=== PATIENT | female | born 1985 | race Caucasian/White ===

== ENCOUNTER 2017-07-13 07:30 | Inpatient (IN) | payer OTHER ==
[~2017-07-13] VITALS: Ht 172.7 cm; Wt 72.5 kg
[2017-08-12] MEDS ORDERED: ASPI1TAB57 PO (05:40)
[2017-08-12] MEDS ORDERED: ZYRTEC PO (05:40)
[2017-08-12] MEDS ORDERED: PRENTAB7 (05:40)
[2017-08-12] MEDS ORDERED: LACTATED RINGER'S 1000 ML IV ONE (06:00)
[2017-08-12] MEDS ORDERED: ceFAZolin 2 GM PREMIX 50 ML IV SCH (06:00)
[2017-08-12] MEDS ORDERED: LACTATED RINGER'S 1000 ML IV SCH (06:00)
[2017-08-12] MEDS ORDERED: CITRIC ACID-SODIUM CITRATE LIQ 30 ML UDC PO SCH (06:00)
[2017-08-12 06:13] LABS: AUTOMATED NEUTROPHIL # 3.4 TH/MM3 (1.8-7.7); BASOPHIL % 0.5 % (0.0-2.0); EOSINOPHIL % 0.8 % (0.0-4.0); HEMATOCRIT 32.9 % (35.0-46.0); HEMOGLOBIN 11.1 GM/DL (11.6-15.3); LYMPH % 19.9 % (9.0-44.0); MEAN CELL VOLUME 81.2 FL (80.0-100.0); MEAN CORPUSCULAR HEMOGLOBIN 27.4 PG (27.0-34.0); MEAN CORPUSCULAR HGB CONC 33.7 % (32.0-36.0); MEAN PLATELET VOLUME 8.7 FL (7.0-11.0); MONO % 8.8 % (0.0-8.0); MONOCYTE # 0.4 TH/MM3 (0-0.9); PLATELET COUNT 197 TH/MM3 (150-450); RED BLOOD COUNT 4.05 MIL/MM3 (4.00-5.30); RED CELL DISTRIBUTION WIDTH 13.4 % (11.6-17.2); WHITE BLOOD COUNT 4.9 TH/MM3 (4.0-11.0)
[2017-08-12 06:19] LABS: BACTERIA, URINE RARE /hpf; BILIRUBIN, URINE NEG (NEG); BLOOD, URINE NEG (NEG); GLUCOSE,URINE NEG (NEG); KETONE, URINE 10 mg/dL (NEG); NITRITE,URINE NEG (NEG); SQUAMOUS EPITHELIAL CELL URINE 11 /hpf (0-5); URINE COLOR YELLOW (YELLW/STRAW); URINE LEUKOCYTE ESTERASE SMALL (NEG)
[2017-08-12 07:08] LABS: ALBUMIN 3.2 GM/DL (3.4-5.0); AST (GOT) 20 U/L (15-37); BICARBONATE 20.3 MEQ/L (21.0-32.0); BLOOD UREA NITROGEN 14 MG/DL (7-18); CHLORIDE 105 MEQ/L (98-107); CREATININE 0.57 MG/DL (0.50-1.00); GLOMERULAR FILTRATION RATE 121 ML/MIN (>89); GLUCOSE,RANDOM 75 MG/DL (74-106); SODIUM (NA) 137 MEQ/L (136-145)
[2017-08-12 07:09] LABS: ALT (GPT) 21 U/L (10-53)
[2017-08-12 07:12] LABS: ALKALINE PHOSPHATASE 300 U/L (45-117); TOTAL BILIRUBIN ADULT 0.2 MG/DL (0.2-1.0); TOTAL PROTEIN 7.1 GM/DL (6.4-8.2)
[2017-08-12] MEDS ORDERED: MORPHINE SULFATE PF 5 MG/10 ML VIAL ONE (07:15)
--- NOTE | 2017-08-12 07:29 | HHI.HP ---
HPI Chief Complaint repeat CS at 39 weeks Date Seen: August 12, 2017 Time Seen: 07:00 Travel History International Travel<30 Days: No Contact w/Intl Traveler<30Days: No Known Affected Area: No History of Present Illness HPI 32 yo G$ P3 with 3 previous CS for repeat at 39 weeks Weeks Gestation: 39 Para: 3 : 4 History Past Medical History Medical History: Denies Significant Hx Past Surgical History Surgical History: No Previous Surgery Family History Family History: Negative Social History Alcohol Use: No Tobacco Use: No Substance Abuse: No Allergies-Medications (Allergen,Severity, Reaction): Coded Allergies: No Known Allergies (Unverified , 08/12/17) Home Meds Reported Medications Aspirin DR (Aspirin 81) 81 Mg Tabdr, 81 MG PO DAILY, TAB 0 Refills 08/12/17 [Zyrtec] No Conflict Check, 10 MG PO DAILY 08/12/17 Pnv No.95/Ferrous Fum/Folic AC ( Vitamins Tablet) 28 Mg Iron-800 Mcg Tablet 08/12/17 Review of Systems Except as stated in HPI: all other systems reviewed are Neg Physical Exam Narrative GENERAL: Well-nourished, well-developed patient. SKIN: Warm and dry. HEAD: Normocephalic and atraumatic. EYES: No scleral icterus. No injection or drainage. ENT: No nasal drainage noted. Mucous membranes pink. Airway patent. NECK: Supple, trachea midline. No JVD. CARDIOVASCULAR: Regular rate and rhythm without murmurs, gallops, or rubs. RESPIRATORY: Breath sounds equal bilaterally. No accessory muscle use. BREASTS: Bilateral exam showed no masses , no retractions, no nipple discharge. ABDOMEN/GI: Abdomen soft, non-tender, bowel sounds present, no rebound, no guarding Gravid to 40 weeks size Fundal Height: [-] GENITOURINARY: External Genitalia: intact and normal in appearance BUS glands: [-] Cervix: [-] Dilatation: deferred Effacement: [-] Station: [-] Presentation: VTX Membranes: [intact FHT's: Category:1 Baseline: [-] Reactive: [-] Variability: [-] Decels: [-] EXTREMITIES: No cyanosis or edema. BACK: Nontender without obvious deformity. No CVA tenderness. NEUROLOGICAL: Awake and alert. Motor and sensory grossly within normal limits. Five out of 5 muscle strength in all muscle groups. Normal speech. Caprini VTE Risk Assessment Caprini VTE Risk Assessment: No/Low Risk (score <= 1) Caprini Risk Assessment Model Point Value = 1 Point Value = 2 Point Value = 3 Point Value = 5 Age 41-60 Minor surgery BMI > 25 kg/m2 Swollen legs Varicose veins or History of unexplained or recurrent spontaneous Oral contraceptives or hormone replacement Sepsis (< 1 month) Serious lung disease, including pneumonia (< 1 month) Abnormal pulmonary function Acute myocardial infarction Congestive heart failure (< 1 month) History of inflammatory bowel disease Medical patient at bed rest Age 61-74 Arthroscopic surgery Major open surgery (> 45 min) Laparoscopic surgery (> 45 min) Malignancy Confined to bed (> 72 hours) Immobilizing plaster cast Central venous access Age >= 75 History of VTE Family history of VTE Factor V Leiden Prothrombin [id number] Lupus anticoagulant Anticardiolipin antibodies Elevated serum homocysteine Heparin-induced thrombocytopenia Other congenital or acquired thrombophilia Stroke (< 1 month) Elective arthroplasty Hip, pelvis, or leg fracture Acute spinal cord injury (< 1 month) Prophylaxis Regimen Total Risk Factor Score Risk Level Prophylaxis Regimen 0-1 Low Early ambulation 2 Moderate Order ONE of the following: *Sequential Compression Device (SCD) *Heparin 5000 units SQ BID 3-4 Higher Order ONE of the following medications: *Heparin 5000 units SQ TID *Enoxaparin/Lovenox 40 mg SQ daily (WT < 150 kg, CrCl > 30 mL/min) *Enoxaparin/Lovenox 30 mg SQ daily (WT < 150 kg, CrCl > 10-29 mL/min) *Enoxaparin/Lovenox 30 mg SQ BID (WT < 150 kg, CrCl > 30 mL/min) AND/OR *Sequential Compression Device (SCD) 5 or more Highest Order ONE of the following medications: *Heparin 5000 units SQ TID (Preferred with Epidurals) *Enoxaparin/Lovenox 40 mg SQ daily (WT < 150 kg, CrCl > 30 mL/min) *Enoxaparin/Lovenox 30 mg SQ daily (WT < 150 kg, CrCl > 10-29 mL/min) *Enoxaparin/Lovenox 30 mg SQ BID (WT < 150 kg, CrCl > 30 mL/min) AND *Sequential Compression Device (SCD) Data Data Vital Signs Reviewed: Yes Orders Orders Admit To Inpatient (08/12/17 ) Code Status (08/12/17 05:40) Vital Signs (Adult) .ON ADMISSION (08/12/17 05:40) Activity Oob Ad Jeanette (08/12/17 05:40) Heart (08/12/17 05:40) Urinary Catheter Management FAREED.Q8H (08/12/17 05:40) ^ Preps (08/12/17 05:40) Scd / Jerome / Foot Pump FAREED.QSHIFT (08/12/17 05:40) ^ Ultrasound For Locatio (08/12/17 05:40) Diet Npo (08/12/17 Breakfast) Type And Screen (08/12/17 05:40) Complete Blood Count With Diff (08/12/17 05:40) Urinalysis - C+S If Indicated (08/12/17 05:40) Drug Screen, Random Urine (08/12/17 05:40) Specimen To Be Collected PRN (08/12/17 05:40) Specimen To Be Collected PRN (08/12/17 05:40) Lactated Ringer's 1000 Ml Inj (Lr 1000 M (08/12/17 06:00) Lactated Ringer's 1000 Ml Inj (Lr 1000 M (08/12/17 06:00) Citric Acid-Sodium Citrate Liq (Bicitra (08/12/17 06:00) Cefazolin 2 Gm Premix (Ancef 2 Gm Premix (08/12/17 06:00) Comprehensive Metabolic Panel (08/12/17 06:01) Morphine Pf Inj (Duramorph Pf 0.5 Mg/Ml (08/12/17 07:15) Labs Laboratory Tests Test 08/12/17 05:55 White Blood Count 4.9 Red Blood Count 4.05 Hemoglobin 11.1 Hematocrit 32.9 Mean Corpuscular Volume 81.2 Mean Corpuscular Hemoglobin 27.4 Mean Corpuscular Hemoglobin Concent 33.7 Red Cell Distribution Width 13.4 Platelet Count 197 Mean Platelet Volume 8.7 Neutrophils (%) (Auto) 70.0 Lymphocytes (%) (Auto) 19.9 Monocytes (%) (Auto) 8.8 Eosinophils (%) (Auto) 0.8 Basophils (%) (Auto) 0.5 Neutrophils # (Auto) 3.4 Lymphocytes # (Auto) 1.0 Monocytes # (Auto) 0.4 Eosinophils # (Auto) 0.0 Basophils # (Auto) 0.0 CBC Comment DIFF FINAL Differential Comment Urine Color YELLOW Urine Turbidity HAZY Urine pH 6.0 Urine Specific [place] 1.015 Urine Protein NEG Urine Glucose (UA) NEG Urine Ketones 10 Urine Occult Blood NEG Urine Nitrite NEG Urine Bilirubin NEG Urine Urobilinogen LESS THAN 2.0 Urine Leukocyte Esterase SMALL Urine RBC 1 Urine WBC 4 Urine Squamous Epithelial Cells 11 Urine Bacteria RARE Microscopic Urinalysis Comment CULT NOT INDICATED Blood Urea Nitrogen 14 Creatinine 0.57 Random Glucose 75 Total Protein 7.1 Albumin 3.2 Calcium Level 9.0 Alkaline Phosphatase 300 Aspartate Amino Transf (AST/SGOT) 20 Alanine Aminotransferase (ALT/SGPT) 21 Total Bilirubin 0.2 Sodium Level 137 Potassium Level 3.9 Chloride Level 105 Carbon Dioxide Level 20.3 Anion Gap 12 Estimat Glomerular Filtration Rate 121 Urine Opiates Screen NEG Urine Barbiturates Screen NEG Urine Amphetamines Screen NEG Urine Benzodiazepines Screen NEG Urine Cocaine Screen NEG Urine Cannabinoids Screen NEG Assessment/Plan Problem List: (1) 39 weeks gestation of ICD Codes: Z3A.39 - 39 weeks gestation of (2) Delivered by section ICD Codes: Z38.01 - Single liveborn , delivered by Discharge Planning home after 2 days Mathieu Cheng MD August 12, 2017 07:29
--- NOTE | 2017-08-12 08:14 | PD.OB.DELI ---
Procedure Note Section Procedure Pre Op Diagnosis: (1) Delivered by section (2) Status post repeat low transverse section Post Op Diagnosis: (1) Status post repeat low transverse section Performed by Mathieu Cheng Procedure: Repeat Low Transverse Sec Indication for delivery: Desired elective repeat Informed consent obtained: For anesthesia, For procedure Confirmed correct: Patient, Procedure, Site, Time-out taken Anesthesia: Spinal Monitoring during procedure: Blood pressure monitoring, phototypesetting equipment monitor Urinary catheter: Inserted using sterile technique, To dependent drainage Sterile preparation: Duraprep, In usual fashion Position: Supine with wedge to left side Operative Features Skin Incision: Pfannenstiel Uterine Incision: Low transverse w/knife / blunt ext Membranes Ruptured: Artificially Presentation: Occiput anterior Delivery date: August 12, 2017 Delivery time: 07:43 Delivery of infant: Uneventful Infant: Female, Single One Minute : 8 Five Minute : 9 Weight: 7# Status of infant: Viable Placenta delivered: Intact Medications: Antibiotics Estimated blood loss: 500 Procedure tolerated: Well Maternal Condition: Stable Condition: Stable Mathieu Cheng MD August 12, 2017 08:14
[2017-08-12] MEDS: SODIUM CHLORIDE 0.9% FLUSH 10 ML FLUSH IV FLUSH SCH (08:27)
[2017-08-12] MEDS ORDERED: OXYTOCIN 30 UNITS-500ML PREMIX 500 ML ONE (08:28)
[2017-08-12] MEDS ORDERED: SODIUM CHLORIDE 0.9% FLUSH 10 ML FLUSH IV FLUSH PRN (08:30)
[2017-08-12] MEDS ORDERED: KETOROLAC TROMETHAMINE 60 MG/2 ML (IM) VIAL IM PRN (08:30)
[2017-08-12] MEDS ORDERED: OXYTOCIN 30 UNITS-500ML PREMIX 500 ML IV ONE (08:30)
--- NOTE | 2017-08-12 08:34 | MP ---
cc: Mathieu Cheng MD DATE OF OPERATION: PROCEDURE PERFORMED: Repeat low transverse section. PREOPERATIVE DIAGNOSIS: Three previous sections, 39 weeks. POSTOPERATIVE DIAGNOSIS: Three previous sections, 39 weeks. SURGEON: Mathieu Cheng MD ESTIMATED BLOOD LOSS: 500 mL COMPLICATIONS: None. ANESTHESIA: Spinal. COMPLICATIONS: None. FINDINGS: Live female , Apgars of 8 and 9. PROCEDURE IN DETAIL: After informed consent, the patient was taken to the operating room where she was placed under spinal anesthesia, was placed in supine position left lateral tilt. Abdomen, perineum, vagina were prepped and draped in normal sterile fashion. Bladder was drained with a Eid catheter to dependent gravity. Once adequate anesthesia was assured and timeout was taken and everyone agreed with the procedure, a Pfannenstiel skin incision was carried sharply to the old scar to the fascia. The fascia was nicked in the midline and the incision extended laterally using Lea scissors. The rectus muscles were dissected off the fascia with sharp and blunt dissection. Rectus muscle was in the midline and the peritoneum was entered at that same time, the incision was extended laterally using blunt traction. A hand was placed in the abdomen and the uterus was noted to be midline. A low transverse uterine incision was then made, carried sharply in the uterine cavity. Bladder was already down on the cervix. Then, once a low transverse uterine incision was made, we entered the uterine cavity. The incision was extended laterally using blunt traction upward and downward. Hand was placed in the uterus. The 's head was guided to the incision, using fundal pressure, the infant's head readily delivered. Nose and mouth suctioned well. Cord was clamped and cut. was handed to pediatrics in attendance. Cord blood was collected. Placenta was delivered manually. Uterus exteriorized, wiped free from all remaining products of conception. Uterine incision was then closed with a running locking stitch of chromic suture. The uterus was noted to be hemostatic. The left uterine artery was tied off secondary to some oozing from the angle. The uterus was placed back in the abdomen and noted to be hemostatic. The peritoneum was closed with chromic suture. The fascia was closed with Vicryl suture, and the skin was closed with subcuticular stitches. This layer was noted to be hemostatic prior to closure and a pressure dressing was applied. Lap and instrument counts were reported as correct. The mother went to the recovery room and the infant went to the recovery room with her. Mathieu Cheng MD JWM/TL , 08:17 AM , 08:33 AM
[2017-08-12] MEDS ORDERED: EPIDURAL-NALOXONE HCL 0.4 MG/ML AMP IV PUSH PRN (11:00)
[2017-08-12] MEDS ORDERED: EPIDURAL-NO SYSTEMIC NARCOTICS PRN (11:00)
[2017-08-12] MEDS ORDERED: EPIDURAL-DIPHENHYDRAMINE HCL 50 MG/ML VIAL IV PUSH PRN (11:00)
[2017-08-12] MEDS ORDERED: EPIDURAL-DO NOT ADMINISTER ANTICOAGULANTS PRN (11:00)
[2017-08-12] MEDS ORDERED: EPIDURAL-DIPHENHYDRAMINE HCL 50 MG CAP PO PRN (11:00)
[2017-08-12] MEDS ORDERED: LACTATED RINGER'S 1000 ML INJ 1,000 ML IV SCH (13:17)
[2017-08-12] MEDS ORDERED: OXYTOCIN 30 UNITS-500ML PREMIX 500 ML IV PRN (13:30)
[2017-08-12] MEDS: SIMETHICONE 80 MG CHEWABLE TAB PO PRN (20:29)
[2017-08-12 20:46] VITALS: BP 112/67; PULSE 69; RESP 18; TEMP 98
[2017-08-13 00:03] VITALS: BP 112/69; PULSE 81; RESP 18; TEMP 98
[2017-08-13 04:35] VITALS: BP 104/63; PULSE 74; RESP 18; TEMP 98
[2017-08-13] MEDS: oxyCODONE/ACETAMINOPHEN 5 MG/325 MG TAB PO PRN ×4 (05:19→22:08)
[2017-08-13 05:57] LABS: AUTOMATED NEUTROPHIL # 7.3 TH/MM3 (1.8-7.7); BASOPHIL % 0.2 % (0.0-2.0); EOSINOPHIL % 0.1 % (0.0-4.0); HEMATOCRIT 28.9 % (35.0-46.0); HEMOGLOBIN 9.6 GM/DL (11.6-15.3); LYMPH % 10.7 % (9.0-44.0); MEAN CELL VOLUME 81.9 FL (80.0-100.0); MEAN CORPUSCULAR HEMOGLOBIN 27.2 PG (27.0-34.0); MEAN CORPUSCULAR HGB CONC 33.2 % (32.0-36.0); MEAN PLATELET VOLUME 8.9 FL (7.0-11.0); MONO % 8.8 % (0.0-8.0); MONOCYTE # 0.8 TH/MM3 (0-0.9); NEUT % 80.2 % (16.0-70.0); PLATELET COUNT 178 TH/MM3 (150-450); RED BLOOD COUNT 3.52 MIL/MM3 (4.00-5.30); RED CELL DISTRIBUTION WIDTH 13.7 % (11.6-17.2); WHITE BLOOD COUNT 9.1 TH/MM3 (4.0-11.0)
--- NOTE | 2017-08-13 08:08 | HHI.OB ---
Subjective Post Day: 1 Remarks doing well Objective Vitals/I&O Vital Signs Date Time Temp Pulse Resp B/P (MAP) Pulse Ox O2 Delivery O2 Flow Rate FiO2 08/13/17 04:35 98.0 74 18 104/63 (77) 08/13/17 00:03 98.0 81 18 112/69 (83) 08/12/17 20:46 98.0 69 18 112/67 (82) Objective Remarks GENERAL: Well-nourished, well-developed patient. ABDOMEN/GI: Abdomen soft, non-tender. Fundus: Firm, non-tender at umbilicus. GENITOURINARY: Light to moderate bleeding. EXTREMITIES: No cyanosis or edema, non-tender, without signs of DVT. Medications and IVs Current Medications Medications (Trade) Dose Ordered Sig/Dante Route Start Time Stop Time Status Last Admin (Bicitra Liq) 30 ml CARTOGRAPHIC ENGINEER PO 08/12/17 06:00 08/15/17 05:59 08/12/17 07:10 Cefazolin Sodium/ Dextrose 50 ml @ 100 mls/hr CARTOGRAPHIC ENGINEER IV 08/12/17 06:00 08/15/17 05:59 08/12/17 07:10 Lactated Ringer's 1,000 ml @ 100 mls/hr Q10H IV 08/12/17 13:17 08/13/17 09:16 Oxytocin 500 ml @ 100 mls/hr UNSCH X1 PRN IV 08/12/17 13:30 08/13/17 13:29 (NS Flush) 2 ml BID IV FLUSH 08/12/17 09:00 (NS Flush) 2 ml UNSCH PRN IV FLUSH 08/12/17 08:30 (Mylicon Chew) 80 mg QID PRN PO 08/12/17 08:30 08/12/17 20:29 (Motrin) 600 mg Q6H PRN PO 08/12/17 08:30 (Toradol Inj) 30 mg Q6H PRN IM 08/12/17 08:30 08/13/17 08:29 (Percocet 5-325 Mg) 1 tab Q4H PRN PO 08/12/17 08:30 08/13/17 05:19 (Percocet 5-325 Mg) 2 tab Q4H PRN PO 08/12/17 08:30 (M-M-R Ii Inj) 0.5 ml ONCE ONCE SQ 08/13/17 16:00 08/13/17 16:01 (Boostrix Inj) 0.5 ml ONCE ONCE IM 08/13/17 16:00 08/13/17 16:01 08/12/17 20:29 ([facility] Nursing Information) NO SYSTEMIC NARCOTICS TO BE GIVEN FO... UNSCH PRN .XX 08/12/17 11:00 08/13/17 10:59 (Narcan Inj) 0.4 mg UNSCH PRN IV PUSH 08/12/17 11:00 08/13/17 10:59 (Benadryl Inj) 25 mg Q6H PRN IV PUSH 08/12/17 11:00 08/13/17 10:59 (Benadryl) 50 mg Q6H PRN PO 08/12/17 11:00 08/13/17 10:59 ([facility] Nursing Information) ALL NURSING DEPARTMENTS UNSCH PRN .XX 08/12/17 11:00 08/13/17 10:59 Assessment/Plan Problem List: (1) 39 weeks gestation of ICD Codes: Z3A.39 - 39 weeks gestation of (2) Delivered by section ICD Codes: Z38.01 - Single liveborn infant, delivered by Discharge Planning home in AM if stable Mathieu Cheng MD August 13, 2017 08:08
--- NOTE | 2017-08-13 08:09 | HHI.DCPOC ---
Discharge Care Plan Diagnosis: (1) Delivered by section Report Symptoms to Your Doctor -Temperature above 100.5 degrees -Redness, of incision or excessive or foul smelling drainage -Unusual pain or calf pain -Increased vaginal bleeding -Painful or difficulty urinating -Feelings of extreme sadness or anxiety after 2 weeks Goals to Promote Your Health * To prevent worsening of your condition and complications * To maintain your health at the optimal level Directions to Meet Your Goals Take your medications as prescribed Follow your dietary instruction Follow activity as directed Ensure plenty of rest for recovery Drink fluids for hydration Keep your appointments as scheduled Take your immunizations and boosters as scheduled If your symptoms worsen call your PCP, if no PCP go to Urgent Care Center or Emergency Room Smoking is Dangerous to Your Health. Avoid second hand smoke Call the 24-hour crisis hotline for domestic abuse at Mathieu Cheng MD August 13, 2017 08:09
[2017-08-13] MEDS: SODIUM CHLORIDE 0.9% FLUSH 10 ML FLUSH IV FLUSH SCH ×2 (09:00→19:44)
[2017-08-13] MEDS: IBUPROFEN 600 MG TAB PO PRN ×3 (09:58→22:08)
[2017-08-13] MEDS: SIMETHICONE 80 MG CHEWABLE TAB PO PRN ×3 (09:58→22:11)
[2017-08-13] MEDS ORDERED: MEASLES, MUMPS, RUBELLA VACCINE 0.5 ML VIAL SQ ONE (16:00)
[2017-08-13] MEDS ORDERED: DIPHTH/TETANUS/ACEL PERTUSSIS (BOOSTER) 0.5 ML VIAL/PFS IM ONE (16:00)
[2017-08-13 20:36] VITALS: BP 114/78; PULSE 79; RESP 18; TEMP 97.9
[2017-08-14] MEDS: IBUPROFEN 600 MG TAB PO PRN (04:47)
[2017-08-14] MEDS: oxyCODONE/ACETAMINOPHEN 5 MG/325 MG TAB PO PRN (04:47)
--- NOTE | 2017-08-14 07:31 | HHI.OB ---
Subjective Post Day: 2 Remarks doing well Objective Vitals/I&O Vital Signs Date Time Temp Pulse Resp B/P (MAP) Pulse Ox O2 Delivery O2 Flow Rate FiO2 08/13/17 20:36 97.9 79 18 114/78 (90) Objective Remarks GENERAL: Well-nourished, well-developed patient. ABDOMEN/GI: Abdomen soft, non-tender. Fundus: Firm, non-tender at umbilicus. GENITOURINARY: Light to moderate bleeding. EXTREMITIES: No cyanosis or edema, non-tender, without signs of DVT. Medications and IVs Current Medications Medications (Trade) Dose Ordered Sig/Dante Route Start Time Stop Time Status Last Admin (Bicitra Liq) 30 ml NETWORK OPERATIONS SPECIALIST PO 08/12/17 06:00 08/15/17 05:59 08/12/17 07:10 Cefazolin Sodium/ Dextrose 50 ml @ 100 mls/hr NETWORK OPERATIONS SPECIALIST IV 08/12/17 06:00 08/15/17 05:59 08/12/17 07:10 (NS Flush) 2 ml BID IV FLUSH 08/12/17 09:00 (NS Flush) 2 ml UNSCH PRN IV FLUSH 08/12/17 08:30 (Mylicon Chew) 80 mg QID PRN PO 08/12/17 08:30 08/13/17 22:11 (Motrin) 600 mg Q6H PRN PO 08/12/17 08:30 08/14/17 04:47 (Percocet 5-325 Mg) 1 tab Q4H PRN PO 08/12/17 08:30 08/14/17 04:47 (Percocet 5-325 Mg) 2 tab Q4H PRN PO 08/12/17 08:30 08/13/17 22:08 Assessment/Plan Problem List: (1) 39 weeks gestation of ICD Codes: Z3A.39 - 39 weeks gestation of (2) Delivered by section ICD Codes: Z38.01 - Single liveborn infant, delivered by Discharge Planning home today Mathieu Cheng MD August 14, 2017 07:31
[2017-08-14] MEDS ORDERED: OXYC1TAB63 PO (07:32)
--- NOTE | 2017-08-14 07:34 | HHI.DS ---
Admission Date August 12, 2017 at 05:25 Discharge Date: August 14, 2017 Admitting Diagnosis Diagnosis: (1) Status post repeat low transverse section Diagnosis: Principal ICD Codes: Z98.891 - History of uterine scar from previous surgery (2) Delivered by section Diagnosis: Principal ICD Codes: Z38.01 - Single liveborn infant, delivered by Delivery Date: August 12, 2017 : Repeat : Female, Single Brief History 32 yo G$ P3 with 3 previous CS for repeat at 39 weeks Hospital Course doing well PPD #2 requesting DC home Pt Condition on Discharge: Good Discharge Disposition: Discharge Home Discharge Instructions Diet Instructions: As Tolerated, No Restrictions Activities You Can Perform: Pelvic Rest Activities to Avoid: Driving for 24 hrs Follow up Referrals: MANAGER RESIDENTIAL - 2 Weeks @ [facility] with Mathieu Cheng MD New Medications: Oxycodone HCl/Acetaminophen (Oxycodone-Acetaminophen 5-325) 5 Mg-325 Mg Tablet 1 TAB PO Q4H PRN for PAIN SCALE 3 TO 5, #30 TAB Continued Medications: Aspirin DR (Aspirin 81) 81 Mg Tabdr 81 MG PO DAILY, TAB 0 Refills Pnv No.95/Ferrous Fum/Folic AC ( Vitamins Tablet) 28 Mg Iron-800 Mcg Tablet [Zyrtec] () 10 MG PO DAILY Mathieu Cheng MD August 14, 2017 07:34
== END 2017-08-14 12:02 | disposition home or self-care (01) | DRG 766 ==
LOC: H2EB 08-12 05:25 → H1EA 08-12 09:52
PROVIDERS: ADMIT Obstetrics & Gynecology; ATTEND Obstetrics & Gynecology
PROC: 10D00Z1 Extraction of Products of Conception, Low, Open Approach (ICD-10-PCS; principal; 2017-08-12)
DX: O34.211 Maternal care for low transverse scar from previous cesarean delivery (principal); Z23 Encounter for immunization; Z37.0 Single live birth; Z3A.39 39 weeks gestation of pregnancy
CPT/HCPCS: 59025; 80053; 80307; 81001; 85025; 86850; 86900; 86901; 90715; J0690; J2274; J2590; J7120